=== PATIENT | female | born 1945 | race Caucasian/White ===

== ENCOUNTER 2016-10-07 15:57 | Emergency (ER) | payer BC, OTHER ==
[2016-10-07 16:23] VITALS: BP 134/84
--- NOTE | 2016-10-07 16:44 | UC ---
Skin Complaint HPI - HPI Summary HPI Summary: Noticed something on her neck this afternoon while driving. Started pulling at it, then saw in the mirror it was a tick. Pulled it off, urged her to come in because part of the tick might be left in her skin. Area is a little itchy, thinks tick was only there today. - History of Current Complaint Chief Complaint: UCGeneralIllness Time Seen by Provider: 10/07/16 16:23 Stated Complaint: TICK BITE Hx Obtained From: Patient ?: No Onset/Duration: Gradual Onset, Lasting Hours Timing: Constant Onset Severity: Mild Current Severity: Mild Location: Discrete Aggravating: Nothing Alleviating: Nothing Associated Signs & Symptoms: Negative: Nausea, Vomiting, Numbness, Fever, Chills Related History: Insect Bite/Sting - Allergy/Home Medications Allergies/Adverse Reactions: Allergies Allergy/AdvReac Type Severity Reaction Status Date / Time No Known Allergies Allergy Verified 06/18/16 17:29 Review of Systems Constitutional: Negative Skin: Other - tick bite Eyes: Negative ENT: Negative Respiratory: Negative Cardiovascular: Negative Gastrointestinal: Negative Genitourinary: Negative Motor: Negative Neurovascular: Negative Musculoskeletal: Negative Neurological: Negative Psychological: Negative All Other Systems Reviewed And Are Negative: Yes PMH/Surg Hx/FS Hx/Imm Hx Endocrine History Of: Reports: Dyslipidemia Denies: Diabetes, Thyroid Disease Cardiovascular History Of: Denies: Cardiac Disorders, Hypertension Respiratory History Of: Denies: COPD, Asthma GI/ History Of: Denies: Ulcer - Surgical History Surgical History: Yes Surgery Procedure, Year, and Place: D&C. left foot surgery - Family History Known Family History: Positive: Other - stroke, dementia - Social History Lives: With Family Alcohol Use: Weekly Alcohol Amount: 2-3 times per week a glass of wine Substance Use Type: None Smoking Status (MU): Never Smoked Tobacco Physical Exam Triage Information Reviewed: Yes Appearance: Well-Appearing, No Pain Distress, Well-Nourished Vital Signs: Initial Vital Signs Temp 97.4 F 10/07/16 16:16 Pulse 64 10/07/16 16:16 Resp 18 10/07/16 16:16 BP 134/84 10/07/16 16:16 Pulse Ox 99 10/07/16 16:16 Vital Signs Reviewed: Yes Eye Exam: Normal Eyes: Positive: Conjunctiva Clear ENT Exam: Normal ENT: Positive: Normal ENT inspection, Hearing grossly normal, Pharynx normal, TMs normal Dental Exam: Normal Neck exam: Normal Neck: Positive: Supple, Nontender, No Lymphadenopathy Respiratory Exam: Normal Respiratory: Positive: Chest non-tender, Lungs clear, Normal breath sounds, No respiratory distress, No accessory muscle use Cardiovascular Exam: Normal Cardiovascular: Positive: RRR, No Murmur Musculoskeletal Exam: Normal Neurological Exam: Normal Neurological: Positive: Alert Psychological Exam: Normal Skin Exam: Other - 1cm round red area with purple center, no tick parts noted. No erythema or streaking. Pt brought tick that is still moving. Course/Dx - Diagnoses Provider Diagnoses: tick bite. elevated blood pressure due to discomfort Discharge - Discharge Plan Condition: Stable Disposition: HOME Patient Education Materials: Tick Bite (ED) Referrals: Dyllan Harris MD [Primary Care Provider] - Additional Instructions: TICK BITE: You have been bitten by a tick. Once the tick is removed, these "bites" usually cause no problems. Tick fever, tick paralysis, [place] Spotted fever, and Lyme disease are uncommon -- but you should mention this tick bite to your doctor if you develop unusual symptoms in the next several weeks. If you develop any of the following, please see your physician promptly: (1) Fever, chills, or generalized malaise associated with a headache. (2) A red round area at the site of the bite (or elsewhere) (3) Joint pain, joint swelling or generalized weakness. (4) Redness, swelling, or drainage at the site of the bite. Check yourself, your children and your pets for ticks whenever you've been in an area where ticks live. To remove a tick, grasp it firmly with some tweezers or a string in a slipknot as close to its head as possible and pull it steadily. Ticks do not have a typical "head" attached to their body. There are mouth parts sticking out which they use to feed. If there are mouth parts left behind in the wound there is NO increased risk of Lyme infection; however, the chances of a bacterial skin infection (cellulitis) are higher. If mouth parts remain after tick removal, the best thing to do is apply warm soaks to the area 3-4 times per day to encourage the skin to expel the foreign material. WHEN A TICK IS NOT ENGORGED AND HAS BEEN ON LESS THAN 24 HOURS - THE RISK FOR LYME IS NEGLIGIBLE. YOU CAN REMOVE THE TICK AND OBSERVE THE AREA ON YOUR OWN. FOLLOW-UP CARE: You should contact your private physician for follow-up care if you develop spreading redness near the site of the bite or on any other areas of the body. If you are unable to get a timely appointment, or if you are worsening, call us or return for re-evaluation.
== END 2016-10-07 16:45 | disposition home or self-care (01) ==
LOC: UCEAST 15:57
DX: S10.86XA Insect bite of other specified part of neck, initial encounter (principal); W57.XXXA Bitten or stung by nonvenomous insect and other nonvenomous arthropods, initial encounter; Y93.9 Activity, unspecified; Y99.9 Unspecified external cause status; R03.0 Elevated blood-pressure reading, without diagnosis of hypertension; E78.5 Hyperlipidemia, unspecified
CPT/HCPCS: 99211; G0463